=== PATIENT | female | born 1955 | race Caucasian/White ===

== ENCOUNTER 2018-07-15 06:24 | Emergency (ER) | payer OTHER ==
[~2018-07-15] VITALS: Ht 160 cm; Wt 77.1 kg
[~2018-07-15 06:24] MED LIST: COZAAR100 MG; KEFLEX250 MG PO; METFORMIN HCL500 MG; NORVASC10 MG; SYNTHROID200 MCG PO; ULTRACET PO; VASOTEC10 MG NGT
== END 2018-07-15 13:21 | disposition home or self-care (01) ==
LOC: ER 06:24
DX: R51 Headache (principal)

== ENCOUNTER → 2019-08-22 09:10 | Outpatient (CLI) | payer OTHER | END | disposition home or self-care (01) | LOC: LAB 09:10 | PROVIDERS: ATTEND Orthopaedic Surgery | DX: E21.2 Other hyperparathyroidism (principal); E88.89 Other specified metabolic disorders; E55.9 Vitamin D deficiency, unspecified; M85.88 Other specified disorders of bone density and structure, other site; M81.8 Other osteoporosis without current pathological fracture; E56.1 Deficiency of vitamin K; E61.2 Magnesium deficiency ==